=== PATIENT | male | born 1980 | race African-American/Black ===

== ENCOUNTER 2025-06-19 22:04 | Emergency (ER) | payer BC ==
[2025-06-19 22:11] VITALS: BMI 22.7
[2025-06-19] MEDS ORDERED: MORPHINE SULFATE 2 MG/ML SYRINGE ONE (23:13)
[2025-06-19] MEDS: morphine CARPU-JECT 2 MG/1 ML DISP.SYRIN IVPUSH ONE (23:15)
[2025-06-19] MEDS: FAMOTIDINE 20 MG/50 ML IVPB 20 MG/50 ML MG IVPB ONE (23:20)
[2025-06-19] MEDS ORDERED: ONDANSETRON 4 MG/2 ML VIAL ONE (23:20)
[2025-06-19] MEDS ORDERED: FAMOTIDINE 20 MG/50 ML IVPB 20 MG/50 ML MG IVPB ONE (23:20)
[2025-06-19] MEDS ORDERED: ACETAMINOPHEN INJECTION 100 ML ONE (23:20)
[2025-06-19] MEDS: ACETAMINOPHEN 1000 MG/100 ML BAG IVPB ONE (23:20)
[2025-06-19] MEDS: ONDANSETRON 4 MG/2 ML VIAL IVPUSH ONE (23:20)
[2025-06-19] MEDS: SODIUM CHLORIDE 0.9% 500 ML INFUS.BAG IV ONE (23:40)
[2025-06-20 00:09] LABS: ABSOLUTE IMMATURE GRANULOCYTES 0.02 x10^3/uL (0.0-0.031); EOSINOPHILS # 0.05 x10^3/uL (0.04-0.54); MONOCYTE # 0.51 x10^3/uL (0.30-0.82); RDW 13.2 % (12.1-15.9)
[2025-06-20 00:11] LABS: BASOPHILS # 0.05 x10^3/uL (0.01-0.08); EOSINOPHIL % 0.6 % (0.8-7.0); IMMATURE PLATELET FRACTION # 0.20 x10^3/uL; MCHC 31.4 g/dl (32.3-36.5); MEAN CELL VOLUME 88.3 fl (79.0-92.2); MEAN PLT VOLUME 10.7 fl (9.4-12.4); MONOCYTE % 5.6 % (5.3-12.2)
[2025-06-20 00:54] VITALS: BP 126/99; PULSE 56; RESP 20; TEMP 97.2
[2025-06-20 00:55] LABS: ABSOLUTE IMMATURE GRANULOCYTES 0.03 x10^3/uL (0.0-0.031); BASOPHILS # 0.07 x10^3/uL (0.01-0.08); EOSINOPHIL % 0.3 % (0.8-7.0); EOSINOPHILS # 0.03 x10^3/uL (0.04-0.54); MCHC 32.9 g/dl (32.3-36.5); MEAN CELL VOLUME 84.3 fl (79.0-92.2); MEAN PLT VOLUME 10.7 fl (9.4-12.4); MONOCYTE # 0.58 x10^3/uL (0.30-0.82); MONOCYTE % 5.4 % (5.3-12.2); RDW 13.2 % (12.1-15.9)
[2025-06-20 01:18] LABS: CO2 23.0 mmol/L (21-32); GLUCOSE,RANDOM 100.0 mg/dL (74-106)
[2025-06-20 01:21] LABS: CREATININE 1.1 mg/dL (0.55-1.3); SGOT/AST 25.0 U/L (15-37); SGPT/ALT 33.0 U/L (13-61)
[2025-06-20 01:23] LABS: TOT PROT 7.1 g/dl (6.4-8.2)
[2025-06-20 01:24] LABS: ALK PHOS 53.0 U/L (45-117)
[2025-06-20] MEDS ORDERED: DICYCLOMINE HCL 10 MG CAPSULE ONE (01:32)
[2025-06-20] MEDS ORDERED: SUCRALFATE 1 GM TABLET (FP) ONE (01:32)
[2025-06-20] MEDS: DICYCLOMINE HCL 10 MG CAPSULE PO ONE (01:40)
[2025-06-20] MEDS: SUCRALFATE 1 GM TABLET (FP) PO SCH (01:40)
[2025-06-20 01:46] LABS: LDH 248.0 U/L (87-246)
[2025-06-20 02:09] LABS: HCV DIAGNOSTIC IN-HOUSE W/RFLX NON-REACTIVE (NONREACTIVE); HIV INTERPRETATION NEGATIVE (NEGATIVE)
== END 2025-06-20 02:36 | disposition home or self-care (01) ==
LOC: JER 22:04
PROC: 3E033GC Introduction of Other Therapeutic Substance into Peripheral Vein, Percutaneous Approach (ICD-10-PCS; principal; 2025-06-19)
PROC: 3E033NZ Introduction of Analgesics, Hypnotics, Sedatives into Peripheral Vein, Percutaneous Approach (ICD-10-PCS; 2025-06-19)
PROC: 3E033NZ Introduction of Analgesics, Hypnotics, Sedatives into Peripheral Vein, Percutaneous Approach (ICD-10-PCS; 2025-06-19)
PROC: 3E033GC Introduction of Other Therapeutic Substance into Peripheral Vein, Percutaneous Approach (ICD-10-PCS; 2025-06-19)
DX: K29.70 Gastritis, unspecified, without bleeding (principal); K29.80 Duodenitis without bleeding; R10.13 Epigastric pain; R11.2 Nausea with vomiting, unspecified; F41.9 Anxiety disorder, unspecified; R20.0 Anesthesia of skin; R20.2 Paresthesia of skin; R06.4 Hyperventilation
CPT/HCPCS: 36415; 71045-TC-FY; 76705-TC; 80053; 83010; 83615; 83690; 83735; 84484; 85025; 86803; 86850; 86900; 86901; 87389; 93005; 93010; 99285-25